=== PATIENT | female | born 1950 | race Caucasian/White ===

== ENCOUNTER 2023-03-10 10:57 | Day surgery (SDC) | payer MEDICARE ==
[2023-03-10] VITALS (11 sets, daily range): BP systolic 81–138; BP diastolic 54–114
[~2023-03-10] VITALS: Ht 149.9 cm; Wt 68.0 kg
[~2023-03-10 10:57] MED LIST: BUPROPION XL150 M1 PO; BUSPIRONE HCL7.5 M6 PO; DIPH50 PO; Prinivil10 MG PO; Simvastatin40 MG PO; TIZANIDINE HCL213 PO; VENL75ER PO; Ventolin/Prove6.7 GM INH
[2023-03-10] MEDS ORDERED: Aspir 8181 MG PO (11:25)
--- NOTE | 2023-03-10 17:14 | NUR ---
ASUMED CARE OF PATIENT, AT THE BEDSIDE. VVS. LEFT GROIN STABLE, NO HEMATOMA, NO BLEEDING.
--- NOTE | 2023-03-10 18:01 | NUR ---
PATIENT UP OOB WALKING ON THE UNIT. PIV REMOVED FROM ZANE RIGHT WRIST, CATH TIP INTACT AND PRESSURE DRESSING APPLIED. PATIENT OFF MONITOR. REVIEWED DISCHARGE INSTRUCTIONS ALL QUESTIONS ANSWERED FROM THE PATIENT AND HER . PATIENT DRESSED AND ALL BELONGINGS GATHERED. 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
== END 2023-03-10 18:15 | disposition home or self-care (01) ==
LOC: MHTC 10:57
DX: I73.9 Peripheral vascular disease, unspecified (principal); I10 Essential (primary) hypertension; E78.5 Hyperlipidemia, unspecified; J44.9 Chronic obstructive pulmonary disease, unspecified
CPT/HCPCS: 37221; 37252; 37253; 75625; 75716; 75774; 76937; 92978; 99152; 99153; C1725; C1753; C1760; C1769; C1876; C1887; C1894; J1644; J2250; J3010; J7030; J7050; Q9967

== ENCOUNTER → 2024-01-18 | Outpatient (CLI) | payer MEDICARE ==
[~2024-01-18] MED LIST changes: +Aspir 8181 MG PO
[2024-01-18 13:26] LABS: Source, Urine Clean Catch
[2024-01-18 18:07] LABS: Appearance, Urine Clear (Clear); Bilirubin, Urine Neg (Neg); Blood, Urine 1+ (Neg); Color, Urine Yellow (P-Yellow); Glucose Qualitative, Urine Neg (Neg); Ketones, Urine Neg (Neg); Leukocyte Esterase, Urine Neg (Neg); Nitrite, Urine Neg (Neg); Protein, Urine Neg (Neg); Urobilinogen, Urine NORM (Normal)
[2024-01-18 18:22] LABS: Bacteria Mod /hpf; Red Blood Cells, Urine 0-2 /hpf (0-2); Squamous Epithelial Cells Mod /hpf (Few); White Blood Cells, Urine 0-2 /hpf (0-5)
== END | disposition home or self-care (01) ==
LOC: LAB SHORT 13:25
PROVIDERS: Nurse Practitioner Family
DX: R10.9 Unspecified abdominal pain (principal)
CPT/HCPCS: 81001; 87086